=== PATIENT | female | born 2005 | race Caucasian/White ===

== ENCOUNTER 2025-03-25 09:11 | Outpatient (AMB) | payer BC, SELFPAY ==
--- NOTE | 2025-03-25 09:23 | MHC.OFFVIS ---
Vital Signs 03/25/25 09:36 Height 6 ft Weight 243 lb BMI 33.0 BP 136/76 Blood Pressure Location Lt brachial Position Sitting Pulse 72 Intake Visit Reasons: Pilonidal cyst Intake Note: Patient referred by pcp Dr. Ochoa for pilonidal cyst. Patient c/o: here for pilonidal cyst, has been Rx with antbx and I&D tiwice in the past, currently has no discharge, redness or concerns, was last open on with pus and discharge Engagement Executive Required: No Accompanied by: Mother Allergies No Known Drug Allergies Allergy (Mild, Verified 03/25/25 09:38) Unknown Medication List - Last Reconciled 03/25/25 by Darien Schwartz MD norethindrone-e.estradiol-iron 1 mg-20 mcg ()/75 mg (7) (10/04 (28)) 1 tab PO DAILY HPI HPI Pilonidal cyst: Details: [age] year old female referred a pilonidal cyst . She says she started to have this areas swelling and drainage on the tailbone in September,. She says that this had been drained in the past by the urgent care doctor. She says that this would recur periodically and she would have this occasional drainage. She says she has another I and D done about 2 weeks ago In view of this periodic drainage and swelling, she was referred to the office. [facility] Medical History (Updated 03/25/25 @ 09:52 by Darien Schwartz MD) Pilonidal cyst Social History Alcohol intake: never Patient Tobacco Use Status: Never used Tobacco Review of Systems Const Denies chills and Denies fever(s) Card Denies chest pain, Denies dyspnea and Denies dyspnea on exertion Resp Denies cough, Denies dyspnea and Denies dyspnea on exertion GI Denies hematochezia and Denies change in bowel habits Denies hematuria Musc Denies back pain and Denies limited range of motion Neuro Denies focal weakness and Denies convulsions Psych Denies depression and Denies mood swings Physical Exam Vital Signs: Last Vital Signs Pulse 72 03/25/25 09:36 BP 136/76 03/25/25 09:36 BMI result Body Mass Index 33.0 Const General: comfortable and no acute distress Nutritional Appearance: obese Orientation/consciousness: patient oriented x3 Neck Neck: Yes no lymphadenopathy Resp Auscultation: clear to auscultation bilaterally Cardio Rhythm: regular rhythm GI Palpation (GI): Soft to palpation, nontender and no guarding Back/Spine/Pelvis Other: Induration on the sacrococcygeal area to the left of the midline, not currently fluctuant noninflamed, with note of midline pits Neuro General: patient oriented x3 Assessment & Plan Assessment & Plan (1) Pilonidal cyst: Code(s): L05.91 - Pilonidal cyst without abscess Category: Medical Plan: She has recurrent swelling, and drainage from her pilonidal cyst sacrococcygeal area with I and D's in the past. She therefore wants to proceed with formal excision. I explained the technique of excision of the sacrococcygeal pilonidal cyst. I reviewed the risks including but not limited to bleeding, infections, recurrence, postop pain, as well as the benefits and alternatives. She understands and wants to proceed Her mother was with her during the visit. Coding Level of Care Code New Pt Level 3 (17516) Diagnoses Pilonidal cyst L05.91
--- OUTSIDE RECORDS SUMMARY | 2025-03-25 09:28 | XMS_ITS | Encounter Summary ---
Author Organization [facility] Address [address] [place] [address] Phone Care Team Providers Care Proj Mgr Name Role Phone Pamela Ochoa MD Primary Care Provider [phone] Encounter Details Date Type Department Care Team (Late st Contact Info) Description 06/12/2016 Nurse Only [facility], [address] [address] Social History Tobacco Use Types Packs/Day Years Used Date Smoking Tobacco: Never Assessed Comments Unknown Sex and Gender Information Value Date Recorded Sex Assigned at Female 08/18/2024 1:23 PM EST Legal Sex Female 5:01 PM EST Gender Identity Female 08/18/2024 1:23 PM EST Sexual Orientation Another orientation 5 2:59 PM EDT documented as of this encounter Nursing Notes * UNKNOWN, HISTORICAL - 06/12/2016 5:46 PM EDT Elsy Kirkpatrick 2005 NURSE NOTE/VERBAL ORDERS Office/Outpatient Visit Visit Date: Jun 12, 2016 05:46 pm Provider: Twyla Ang (Hhas: Nancy Joseph MD; Practice Specialist: Twyla Ang) [facility] ECTIVE: CC: She is here for the Flu Clinic. Here today with her sister and parents. HPI: No known chronic health conditions. Fever or illness is not present today. No trouble breathing or hives after eating eggs She has not had a reaction to the flu vaccine or other immunization. Flu vaccine VIS was given today.(dated 04/21/15) There were no questions or concerns voiced at today's visit. ASSESSMENT: V04.81 Flu Clinic ORDERS: Procedures Ordered: Immunization administration (includes percutaneous, intradermal, subcutaneous or intramuscular injec (In-House) Other Orders: Influenza vac 4 valent prsrv free 3 yrs plus IM (In-House) PLAN: Flu Clinic Influenza vaccine > 3 yr (Preservative Free) given No contraindications noted for flu vaccines. Tolerated well, left office in good condition. Orders: Influenza vac 4 valent prsrv free 3 yrs plus IM (In-House) Immunization administration (includes percutaneous, intradermal, subcutaneous or intramuscular injec (In-House) CHARGE CAPTURE: Primary Diagnosis: V04.81 Flu Clinic Z23 Encounter for immunization Orders: [id number] Influenza vac 4 valent prsrv free 3 yrs plus IM (In-House) [id number] Immunization administration (includes percutaneous, intradermal, subcutaneous or intramuscular injec (In-House) documented in this encounter Plan of Treatment Not on file documented as of this encounter Visit Diagnoses Not on filedocumented in this encounter Care Teams Proj Mgr Relationship Specialty Start Date End Date Pamela Ochoa MD [address] [place] [id number] PCP - General Pediatrics 11/15/22 documented as of this encounter
[2025-03-25 09:36] VITALS: BP 136/76; PULSE 72; BMI 33.0
== END 2025-03-25 09:49 | disposition home or self-care (01) ==
LOC: HO.HGS 09:12
PROVIDERS: PCP Pediatrics; Referring Provider Pediatrics; Visit Provider Surgery
DX: L05.91 Pilonidal cyst without abscess (principal)
CPT/HCPCS: 99203

== ENCOUNTER 2025-04-08 06:55 | Day surgery (SDC) | payer BC, SELFPAY ==
--- OUTSIDE RECORDS SUMMARY | 2025-04-01 10:18 | XMS_ITS | Encounter Summary ---
Author Organization [facility] Address [address] [place] [address] Phone Care Team Providers Care Enterprise Systems Manager Name Role Phone Pamela Ochoa MD Primary Care Provider [phone] Encounter Details Date Type Department Care Team (Late st Contact Info) Description 06/01/2013 Nurse Only [facility], [address] [address] Social History Tobacco Use Types Packs/Day Years Used Date Smoking Tobacco: Never Assessed Comments Unknown Sex and Gender Information Value Date Recorded Sex Assigned at Female 08/18/2024 1:23 PM EST Legal Sex Female 5:01 PM EST Gender Identity Female 08/18/2024 1:23 PM EST Sexual Orientation Another orientation 5 2:59 PM EDT documented as of this encounter Nursing Notes * UNKNOWN, HISTORICAL - 06/01/2013 2:52 PM EDT Elsy Kirkpatrick 2005 NURSE NOTE/VERBAL ORDERS Office/Outpatient Visit Visit Date: Jun 01, 2013 02:52 pm Provider: Nery Sharma RN (Plastic Eye Technician: Lainey Jenkins MD; Senior Warehouse Clerk: Nery Sharma RN) Location: [facility]. ECTIVE: CC: She is here for the Flu Clinic. HPI: No known chronic health conditions. Fever or illness is not present today. No trouble breathing or hives after eating eggs She has not had a reaction to the flu vaccine or other immunization. Flu vaccine VIS was given today.(interim 04/09/13) There were no questions or concerns voiced at today's visit. OBJECTIVE: Exams: GENERAL APPEARANCE: Alert, active, looks well, mood appropriate ASSESSMENT: V04.81 Flu Clinic ORDERS: Procedures Ordered: Flu Vaccine live, Intranasal use (In-House) Immunization administration by intranasal or oral route; one vaccine (single or combination) (In-House) PLAN: Flu Clinic Influenza intranasal vaccine given No contraindications noted for flu vaccines. Tolerated well, left office in good condition. Orders: Flu Vaccine live, Intranasal use (In-House) Immunization administration by intranasal or oral route; one vaccine (single or combination) (In-House) Patient Recommendations: For Flu Clinic: Influenza (Given) CHARGE CAPTURE: Primary Diagnosis: V0481 Flu Clinic Orders: [id number] Flu Vaccine live, Intranasal use (In-House) [id number] Immunization administration by intranasal or oral route; one vaccine (single or combination) (In-House) documented in this encounter Plan of Treatment Not on file documented as of this encounter Visit Diagnoses Not on filedocumented in this encounter Care Teams Enterprise Systems Manager Relationship Specialty Start Date End Date Pamela Ochoa MD [address] [place] [id number] PCP - General Pediatrics 11/15/22 documented as of this encounter
--- OUTSIDE RECORDS SUMMARY | 2025-04-01 10:18 | XMS_ITS | Clinical Summary ---
Author Organization [facility] Address [address] [place] [address] Phone Care Team Providers Care Headend Technician Name Role Phone Hannah Mota MD Primary Care Provider Allergies No known active allergies Encounters Date Type Department Care Team Description 03/15/2025 3:38 PM EDT - 03/15/2025 11:59 PM EDT Hospital Encounter [facility] [address] [place] [address] Pamela Ochoa MD Discharge Disposition: Home or Self Care from Last 3 Months Social History Tobacco Use Types Packs/Day Years Used Date Smoking Tobacco: Never Smokeless Tobacco: Never Tobacco Cessation:Counseling Given: Not Answered Education Answer Date Recorded Are you interested in more education? Not on philip e 10/09/2023 Are you concerned about learning? Not on file 10/09/2023 No 10/09/2023 No 10/09/2023 Digital Access Answer Date Recorded No 10/09/2023 No 10/09/2023 Reliable internet access at home? Not on file 10/09/2023 Device with a working camera? Not on file Comments Unknown Sex and Gender Information Value Date Recorded Sex Assigned at Not on file Legal Sex Female 8:42 PM EDT Gender Identity Not on file Sexual Orientation Not on file Last Filed Vital Signs Vital Sign Reading Time Taken Comments Blood Pressure 129/80 10/09/2024 9:19 AM EST Pulse 103 10/09/2024 9:19 AM EST Temperature 36.8 C (98.2 F) 10/09/2024 9:19 AM EST Respiratory Rate 16 10/09/2024 9:19 AM EST Oxygen Saturation 96% 10/09/2024 9:19 AM EST Inhaled Oxygen Concentration - - Weight 113.4 kg (250 lb) 10/09/2024 9:19 AM EST Height 182.9 cm (6') 10/09/2024 9:19 AM EST Body Mass Index 33.91 10/09/2024 9:19 AM EST Body Mass Index Percentile 96.57% 10/09/2024 9:1 9 AM EST Growth Chart: CDC (Girls, 2- 20 Years) Plan of Treatment Upcoming Encounters Date Type Department Care Team ([facility] st Contact Info) Description 08/12/2025 10:00 AM EST Office Visit [facility] Medicine [address] [place] [address] Elvi Jones MD [address], [address] [place] [address] Health Maintenance Due Date Last Done Comments DEVELOPMENTAL/BEHAVIORAL SCREENING (PHQ, PSC, or SWYC) 2008 COMBINED DTaP,Tdap,Td (3 - T d or Tdap) 09/20/2017 03/20/2017, 08/24/2010 DEPRESSION SCREENING 2017 SMOKING Hx and SMOKELESS TOBACCO SCREENING 2018 HPV VACCINES (1 - 3-dose series) 2020 MENINGOCOCCAL VACCINES (B) ( 1 of 2 - Standard) 2021 ADOLESCENT UNIVERSAL LIPID SCREENING 2022 HEPATITIS C SCREENING 11/27/2023 HIV ONE-TIME SCREENING (18-6 5 YEARS) 11/27/2023 COVID-19 VACCINE (1 - 2023-2 5 season) 2024 HEPATITIS B VACCINES (1 of 3 - 19+ 3-dose series) 2024 BMI ASSESSMENT 10/09/2025 10/09/2024 CHLAMYDIA SCREENING 03/15/2026 03/15/2025, 10/09/2023 MMR VACCINES Completed 08/24/2010, 06/10/2007 VARICELLA VACCINES Completed 08/24/2010, 08/14/2009 HEPATITIS A VACCINES Aged Out No long er eligible based on patient's age to complete this topic HIB VACCINES Aged Out No longer eligi ble based on patient's age to complete this topic MENINGOCOCCAL VACCINES (ACWY) Aged Out No longer eligible based on patient's age to complete this topic PNEUMOCOCCAL VACCINES (0-49 years) Aged Out No longer eligible b ased on patient's age to complete this topic Medical Devices Not on file Procedures Procedure Name Priority Date/Time Associated Diagnosis Comments CHLAMYDIA TRACHOMATIS AND NEISSERIA GONORRHOEAE NUCLEIC ACID DETECTION Routine 03/15/2025 2:40 PM EDT Encounter for screening for infections with a predominantly sexual mode of transmission from Last 3 Months Results * Chlamydia trachomatis and Neisseria gonorrhoeae Nucleic Acid Amplification (03/15/2025 2:40 PM EDT) CHLAMYDIA TRACHOMATIS Not Detected Not Detected [facility] NEISERIA GONORRHOEAE Not Detected Not Detected [facility] SPECIMEN TYPE swab [facility] 03/15/2025 2:40 PM EDT 03/15/2025 3:40 PM EDT Pamela Ochoa MD NON CULTURE MICROBIOLOGY Fin al Result Performing Organization Address City/State/[facility] Co de Phone Number [facility] [address] [place] [address] from Last [address] [place] [address] [facility] [place] [facility] Member Subscriber Plan / Payer (Ef fective 2023-Present) Name:Elsy Kirkpatrick Relation to Subscriber:Child Name:Brit Kirkpatrick Date of :1968 (Home) Address: [address] [place] [address] Payer ID:[id number] (NAIC) Type:HMO Address: [address] [place], [place] [facility] [place] [phone] [place] [address] [facility] [place] [id number] [place] [address] [facility] [facility] Care Teams Headend Technician Relationship Specialty Start Date End Date Hannah Mota MD [address] [place] [phone] PCP - General 07/01/17 Additional Source Comments The information contained in this document represents components of the legal health record. It is not the complete legal health record.[facility]
[2025-04-06 12:24] VITALS: BMI 33.0
[2025-04-08] VITALS (7 sets, daily range): BP systolic 117–136; BP diastolic 74–96; PULSE 60–108; RESP 13–20; TEMP 36.2–37.2; O2SAT 98–100; BMI 32.9
[2025-04-08 08:20] LABS: UPreg QC Valid YES
[2025-04-08] MEDS: Lactated Ringers 1,000 ML 100 ML IVCONT (08:21)
--- NOTE | 2025-04-08 08:45 | MHC.SHP ---
Pre-Procedural Eval Section A - 24 Hr Update-Section A only Date of Service: 04/08/25 The patient is an INPATIENT: No Changes since office visit: No Cold of Flu in the past 2 weeks, No New Medical Problems, No Changes in Medication and No Patient answered all questions The patient has been examined within 24 hours of the surgical procedure. The History & Physical has been completed within 30 days and I have reviewed it.: Yes Section B - Complete if H&P > 30 days Chief Complaint: Pilonidal cyst without abscess Allergies: Allergies Allergy/AdvReac Type Severity Reaction Status Date / Time No Known Drug Allergies Allergy Mild Unknown Verified 04/08/25 07:51 Plan I have reviewed the history and physical and performed a pertinent physical examination on my patient. No changes have occurred unless specified. Time Spent With Patient Time: Total time managing care of this patient today ____ minutes.
--- NOTE | 2025-04-08 09:03 | HO.ANESPROP2 ---
HPI - Anesthesia Eval Consult details Narrative: 19 yo F presenting for excision of pilonidal cyst PMFSH Active Problems Active Problems: All Active Problems (Updated 03/25/25 @ 09:52 by Darien Schwartz MD) Pilonidal cyst (Acute) Past Medical History Medical History (Updated 03/25/25 @ 09:52 by Darien Schwartz MD) Pilonidal cyst Family History Family history of problems with anesthesia: No Surgical History Surgical History Surgical history unknown History of Problems with Anesthesia: No Social History Social History Are you a primary career developer to a significant other at home: No Do you presently have visiting nurse or other home services: No Alcohol intake: never Patient Tobacco Use Status: Never used Tobacco Use of substances other than those prescribed or required for medical reasons: No Have you been hit, kicked, punched, or otherwise hurt by someone within the past year? If so, by whom?: No Are you DNR?: No Advance Directives: No Advance Directives Information Provided: No Advance Directives on File: No Patient : No : No Poor oral hygiene: No Meds Allergies Allergy/AdvReac Type Severity Reaction Status Date / Time No Known Drug Allergies Allergy Mild Unknown Verified 04/08/25 07:51 Active Medications: Current Medications Lactated Ringer's (Lr) 1,000 mls @ 100 mls/hr IVCONT .Q10H ERICKA Last Admin: 04/08/25 08:21 Dose: 100 mls/hr Home Medications ?Medication ?Instructions ?Recorded ?Confirmed ?Last Taken ?Type norethindrone 1 mg-ethinyl 1 tab PO DAILY 03/25/25 04/08/25 Unknown History estradiol 20 mcg (21)-iron 75 mg (7) tablet (10/04 (28)) Exam Exam Date and Time: 04/08/25 0840 Height,Weight and Vital Signs: Height 6 ft Weight 110.2 kg Last Vital Signs Temp 98.9 F 04/08/25 07:58 Pulse 108 H 04/08/25 07:58 Resp 16 04/08/25 07:58 BP 136/96 H 04/08/25 07:58 Pulse Ox 100 04/08/25 07:58 O2 Del Method Room Air 04/08/25 07:58 Pertinent Lab Results Pertinent Lab Results: Laboratory Tests 04/08/25 07:50 Urine Test NEGATIVE Airway Mallampati Class: I TM Dist: >3cm Neck ROM: Full Loose/Missing/Broken Teeth: No (patient denies any loose or broken teeth) Heart: S1S2 Lungs: CTAB Assessment and Plan Assessment Anesthesia Assessment: Anesthesia Plan Discussed and Chart Reviewed Final Anesthetic Review Family History of Problems with Anesthesia: No History of Problems with Anesthesia: No NPO: Yes ASA Class: I Final Preanesthetic Review: No Changes in Pt Med Stat, Meds/Allgs Chart Reviewed, Consent Obtained/Reviewed and Anes Risks/Benef Reviewed Patient Risk: Low Procedure Risk: Low Anesthetic Plan Anesthetic Plan: GA and Agree w/ Assess. and Plan Disposition: Standard PACU
--- NOTE | 2025-04-08 09:51 | W.PM.OPN ---
Operative Note Operative Note Date of Service: 04/08/25 Narrative: Preop diagnosis: Pilonidal cyst, sacrococcygeal area Postop diagnosis: The same Procedure: Excision of pilonidal cyst, sacrococcygeal area Surgeon: Darien Schwartz MD Fire Sprinkler Apparatus Inspector: CHAVA Manley The patient is a 19 year old female with an area of recurrent swelling, drainage and abscess on the sacrococcygeal area. Examination in the office showed a pilonidal cyst with a midline pit, along with the induration to the left of the midline. She understood the technique of excision. She was aware of the risks, benefits, and alternatives She was brought to the operating room. She was placed supine under general anesthesia via endotracheal tube. The buttocks were retracted with wide tape laterally. The sacrococcygeal area was prepped and draped in the usual sterile fashion. A surgical time-out was done. The patient received cefazolin 2 g IV preoperatively I infiltrated the planned line of incision with lidocaine 1%. I made an elliptical incision in the skin surrounding the midline pit and the entire indurated area to the left with a blade 15. This carried down with electrocautery through the full-thickness of the skin subcutaneous fat. I circumferentially excised this entire indurated thick subcutaneous fat to include all diseased tissue. This was in the specimen. The area excised was about 4 x 2 cm and included the deep subcutaneous layer. I undermined thick subcutaneous layer on both sides to advance this thick subcutaneous tissue and skin as a flap. There was note of significant oozing throughout the subcutaneous layer likely in view of her previous inflammation of the pilonidal cyst I cauterized all oozing areas. Once hemostasis was confirmed, I copiously irrigated I reapposed the subcutaneous layer with Polysorb 3-0 simple interrupted sutures. I encouraged her was achieved with an alternating simple interrupted nylon 3-0 stitch and vertical mattress sutures The area was then generously infiltrated with Marcaine 0.5% for postop analgesia. Thick dressings were applied. The procedure was completed The patient tolerated procedure well. There were no immediate complications. Initial and final counts of sponges and instruments were correct. Estimated blood loss was about 30 cc The patient is extubated without difficulty and transferred to the recovery room with stable vital signs.
== END 2025-04-08 11:19 | disposition home or self-care (01) ==
PROVIDERS: Nurse Practitioner; Visit Provider Surgery
PROC: (CPT 11771; principal; 2025-04-08 09:30)
DX: L05.91 Pilonidal cyst without abscess (principal); Z79.899 Other long term (current) drug therapy
CPT/HCPCS: 11771; 81025; 88304; J0131; J0690; J1100; J1885; J2003; J2250; J2405; J2704; J2795; J3010

== ENCOUNTER → 2025-04-08 06:55 | Outpatient (BNV) | payer BC, SELFPAY | PROVIDERS: Visit Provider Surgery | DX: L05.91 Pilonidal cyst without abscess (principal) | CPT/HCPCS: 11771 ==

== ENCOUNTER 2025-04-21 09:33 | Outpatient (AMB) | payer BC, SELFPAY ==
--- NOTE | 2025-04-21 09:35 | MHC.OFFVIS ---
Vital Signs 04/21/25 09:42 Weight 250 lb BP 126/76 Blood Pressure Location Rt brachial Position Sitting Pulse 96 Intake Visit Reasons: S/P Pilonidal cyst Intake Note: Patient here s/p excision of pilonidal cyst, sacrococcygeal area. Patient c/o: pain at surgical site. Still taking rx Ibuprofen as needed. Keeps incision covered with gauze and tape. Surgery: 04-08-2025 Child And Family Counselor Required: No Accompanied by: mother and sister Allergies No Known Drug Allergies Allergy (Mild, Verified 04/21/25 09:41) Unknown HPI HPI S/P Pilonidal cyst: Details: She underwent excision of pilonidal cyst in the sacrococcygeal area last 04/08/2025. She tolerated the procedure well. She says she is doing very well overall currently. She denies any complaints. [facility] Medical History Pilonidal cyst Surgical History Surgical history unknown Social History Are you a primary manager medicare marketing to a significant other at home: No Do you presently have visiting nurse or other home services: No Alcohol intake: never Patient Tobacco Use Status: Never used Tobacco Review of Systems Const Denies chills and Denies fever(s) Physical Exam Vital Signs: Last Vital Signs Pulse 96 04/21/25 09:42 BP 126/76 04/21/25 09:42 Const Other: Looks well General: comfortable and no acute distress Resp Effort & Inspection: normal respiratory effort Back/Spine/Pelvis Other: Excision site on the sacrococcygeal area is well healed, not infected, sutures intact Assessment & Plan Assessment & Plan (1) Pilonidal cyst: Code(s): L05.91 - Pilonidal cyst without abscess Category: Medical Plan: Status post excision. Her incision is well healed. I removed all her sutures. The wound edges remained well apposed. Her path report shows a pilonidal cyst. She can follow up on a p.r.n. basis Coding Level of Care Code Global (63998) Diagnoses Pilonidal cyst L05.91
[2025-04-21 09:42] VITALS: BP 126/76; PULSE 96
--- OUTSIDE RECORDS SUMMARY | 2025-04-21 10:01 | XMS_ITS | Clinical Summary ---
Author Organization [facility] Address [address] [facility] [address] [place] [id number] Phone Care Team Providers Care Pharmacy Sales Representative Name Role Phone Hannah Mota MD Primary Care Provider Allergies No known active allergies Encounters Date Type Department Care Team Description 03/15/2025 3:38 PM EDT - 03/15/2025 11:59 PM EDT Hospital Encounter [facility] Specimen Processing [address] [place] [address] Pamela Ochoa MD Discharge Disposition: Home or [...] Upcoming Encounters Date Type Department Care Team ([facility] st Contact Info) Description 08/12/2025 10:00 AM EST Office Visit [facility] Medicine [address] [place] [address] Elvi Jones MD [address] [facility], [address] [place] [address] [email or web address] Health Maintenance Due Date Last Done Comments [...] EDT) CHLAMYDIA TRACHOMATIS Not Detected Not Detected [facility] NEISERIA GONORRHOEAE Not Detected Not Detected [facility] SPECIMEN TYPE swab [facility] 03/15/2025 2:40 PM EDT 03/15/2025 3:40 PM EDT Pamela Ochoa MD NON CULTURE MICROBIOLOGY Fin al Result Performing Organization Address City/State/[facility] Co de Phone Number [facility] [address] [place] [address] from Last [address] [place] [address] [place] [address] [facility] Member Subscriber Plan / Payer (Ef fective 2023-Present) Name:Elsy Kirkpatrick Relation to Subscriber:Child Name:Brit Kirkpatrick Date of :1968 (Home) Address: [address] [place] [address] Payer ID:[id number] (NAIC) Type:HMO Address: [address] [place], [place] [facility] [id number] [address] [facility] [id number] [place] [address] [facility] Care Teams Pharmacy Sales Representative Relationship Specialty Start Date End Date Hannah Mota MD [address] [place] [phone] PCP - General 07/01/17 Additional Source Comments The information contained in this document represents components of the legal health record. It is not the complete legal health record.[facility]
--- OUTSIDE RECORDS SUMMARY | 2025-04-21 10:01 | XMS_ITS | Encounter Summary ---
Author Organization [facility] Address [address] [place] [phone] Phone Care Team Providers Care Prop Drawer Name Role Phone Pamela Ochoa MD Primary Care Provider [phone] Encounter Details Date Type Department Care Team (Late st Contact Info) Description 06/01/2013 Nurse Only [facility], [address] [address] Social History Tobacco Use Types Packs/Day Years [...] 2013 02:52 pm Provider: Nery Sharma RN (Mucker Operator: Lainey Jenkins MD; Healthcare Facility Administrator: Neyr Sharma RN) Location: [facility]. ECTIVE: CC: She is here for the [...] CAPTURE: Primary Diagnosis: [id number] Flu Clinic Orders: [id number] Flu Vaccine live, Intranasal use (In-House) 840[address] Immunization administration by intranasal or oral route; one vaccine (single or combination) (In-House) documented in this encounter Plan of Treatment Not on file documented as of this encounter Visit Diagnoses Not on filedocumented in this encounter Care Teams Prop Drawer Relationship Specialty Start Date End Date Pamela Ochoa MD [address] [place] [id number] PCP - General Pediatrics 11/15/22 documented as of this encounter
== END 2025-04-21 09:54 | disposition home or self-care (01) ==
LOC: HO.HGS 09:34
PROVIDERS: PCP Pediatrics; Visit Provider Surgery
DX: L05.91 Pilonidal cyst without abscess (principal)
CPT/HCPCS: 99024